=== PATIENT | male | born 1955 | race Caucasian/White ===

== ENCOUNTER 2022-05-02 08:25 | Emergency (ER) | payer OTHER ==
[~2022-05-02] VITALS: Ht 182.9 cm; Wt 89.6 kg
[2022-05-02] MEDS ORDERED: AMIODARONE HCL (50 MG/ ML) 3 ML VIAL IV ONE (08:26)
[2022-05-02] MEDS ORDERED: DEXTROSE (50%) 50ML SYRG IV ONE ×2 (08:26→10:15)
[2022-05-02] MEDS ORDERED: DOPamine 1600mCg/ml 400MG/250ml NSorD5 KIT/BAG IV ONE (08:26)
[2022-05-02] MEDS ORDERED: CALCIUM CHLOR(10%) 100MG/ML 10ML SYRINGE IV ONE (08:26)
[2022-05-02] MEDS ORDERED: EPINEPHrine HCL 1 MG/10 ML SYRG IV ONE (08:26)
[2022-05-02] MEDS ORDERED: SODIUM BICARBONATE 8.4% INJ 50ML SYRINGE IV ONE (08:26)
[2022-05-02] MEDS ORDERED: NOREPINEPHRINE 8 MG/250ML KIT 250 ML IV ONE (08:31)
[2022-05-02] MEDS ORDERED: DOPamine 1600MCG/ML D5W 250 ML IV ONE (08:45)
[2022-05-02] MEDS ORDERED: EPINEPHrine HCL 250 ML IV ONE ×2 (08:45→12:31)
[2022-05-02] MEDS ORDERED: HEPARIN SODIUM (PORCINE) 5000 UNITS/ML 1ML VIAL IV ONE (08:45)
[2022-05-02] MEDS ORDERED: MIDAZOLAM DRIP 50 mg/50mL 50 ML IV SCH (08:45)
[2022-05-02] MEDS ORDERED: SODIUM CHLORIDE 0.9% 1,000 ML IV ONE (08:45)
[2022-05-02] MEDS ORDERED: NOREPINEPHRINE 8 MG/250ML KIT 250 ML IV SCH (08:45)
[2022-05-02] MEDS ORDERED: VASOPRESSIN 20 UNITS in SODIUM CHL 0.9% 99 ML IV SCH (09:00)
[2022-05-02 09:14] LABS: Albumin 2.9 g/dL (3.4-5.0); Calcium 12.9 mg/dL (8.5-10.1); Magnesium 3.3 mg/dL (1.6-2.6)
[2022-05-02 09:17] LABS: Bilirubin, Total 0.8 mg/dL (0.2-1.0); Total Protein 6.7 g/dL (6.4-8.2)
[2022-05-02 09:22] LABS: INR 1.47 (0.9-1.15)
[2022-05-02 09:23] LABS: Urine Bacteria NONE SEEN /hpf (None Seen); Urine Blood 3+ /uL (Negative); Urine Specific Gravity 1.016 (1.001-1.035); Urine WBC 166 /hpf (0 - 3)
[2022-05-02 09:34] LABS: Hematocrit 45.1 % (41.0-53.0); Hemoglobin 13.6 g/dL (13.5-17.5); Mean Corpuscular Hemoglobin 30.4 pg (28.0-32.0); Mean Corpuscular Hgb Conc. 30.2 g/dL (32.0-36.0); Mean Corpuscular Volume 100.7 fL (80.0-100.0); Red Blood Cells 4.47 10^6/uL (4.5-5.90); Red Cell Distribution Width 17.4 % (11.8-14.3); White Blood Cell 29.8 10^3/uL (4.4-10.8)
[2022-05-02 09:39] LABS: Basophils % (manual) 0 (0.0-2.0); Blast Cells 0; Eosinophils % (manual) 0 (0-7); Partial Thromboplastin Time 119.4 sec (24.6-33.4); Promyelocytes % 0
[2022-05-02 09:48] LABS: Potassium 5.8 mmol/L (3.5-5.1)
[2022-05-02 09:54] LABS: Amphetamine Screen, Urine NEGATIVE (NEGATIVE); Barbiturate Scree,Urine NEGATIVE (NEGATIVE); Benzodiazephine Screen, Urine NEGATIVE (NEGATIVE); Cannabinoid Screen, Urine NEGATIVE (NEGATIVE); Cocaine Screen, Urine NEGATIVE (NEGATIVE); Opiate Scree,Urine NEGATIVE (NEGATIVE); Phencyclidine Screen, Urine NEGATIVE (NEGATIVE)
[2022-05-02 10:01] LABS: Alcohol, Urine < 3.0 mg/dL (0-10)
[2022-05-02] MEDS ORDERED: SODIUM ZIRCONIUM CYCL 10 GM PAK PO ONE (10:15)
[2022-05-02] MEDS ORDERED: InsuLIN REG 1unit/0.01ml Soln (100units/ml) IV ONE (10:15)
[2022-05-02] MEDS ORDERED: SODIUM BICARBONATE 50ML VIAL 50 ML, SODIUM BICARBONATE 50ML VIAL 50 ML, SODIUM BICARBON... IV ONE ×2 (10:15)
[2022-05-02] MEDS ORDERED: SODIUM BICARBONATE 50ML VIAL 150 ML in SOD CHL 0.45% 1,000 ML IV ONE (10:30)
[2022-05-02] MEDS ORDERED: PHENYLEPHRINE INJ 40 MG in SODIUM CHL 0.9% 246 ML IV SCH (10:45)
[2022-05-02 11:30] VITALS: BP 68/35
[2022-05-02 12:07] LABS: Band Neutrophils % (manual) 12; Lymphocytes % (manual) 27 (10.0-50.0); Metamyelocytes % 3; Monocytes % (manual) 4 (0-12); Myelocytes % 1; Reactive Lymphocytes 1
[2022-05-02] MEDS ORDERED: EPINEPHrine HCL 250 ML IV SCH (12:30)
[2022-05-02] MEDS ORDERED: SODIUM BICARBONATE 8.4% INJ 50ML SYRINGE ONE (13:21)
[2022-05-02] MEDS ORDERED: EPINEPHrine HCL 1 MG/10 ML SYRG ONE (13:21)
[2022-05-02 13:25] LABS: BUN/Creatinine Ratio 5.2
[2022-05-02] MEDS ORDERED: CLINDAMYCIN 600MG IV 50 ML IV ONE (13:30)
[2022-05-02] MEDS ORDERED: cefTRIAXone 1GM/50ML D5W 50 ML IV ONE (13:30)
[2022-05-02 13:44] VITALS: BP 74/43
== END 2022-05-02 13:57 ==
LOC: EDBD 08:25 → ER 08:25
DX: I46.9 Cardiac arrest, cause unspecified (principal); I10 Essential (primary) hypertension; Z20.822 Contact with and (suspected) exposure to COVID-19
CPT/HCPCS: 31500; 36415; 36556; 36600; 71045; 74018; 80053; 80307; 81001; 82805; 82962; 83735; 84484; 85007; 85027; 85610; 85730; 87070; 87205; 87426; 92950; 93005; 93306; 96361; 96365; 96366; 96368; 96375; 99291; C9803; J0171; J0282; J0696; J1265; J2370; J3490; J7042; J7050; U0003; 94002